=== PATIENT | male | born 1960 | race Caucasian/White ===

== ENCOUNTER → 2025-04-25 06:56 | Outpatient (CLI) | payer MEDICARE, OTHER, SELFPAY ==
--- NOTE | 2025-04-25 06:59 | DI.ECHO.S_ITS ---
[facility] : : [address] : : [place] : : [id number] : : Phone: [phone] Echocardiogram Report + + :Name: AUGIE TUCKER Study Date: 04/25/2025 Height: 70 in : :Hospital ReadingLocation: Weight: 248 lb : : Gender: Male BSA: 2.3 m2 : :: 1960 Age: 64 yrs BP: 165/100 mmHg: :Reason For Study: ATRIAL FIBRILLATION : :Ordering Physician: HARIKA, : :CLAUDIA ELDRIDGE Performed By: Debi Estrella : :Referring: CLAUDIA SHABAZZ : + + Interpretation Summary - The left ventricular contractility is normal. Estimated ejection fraction is greater than 55% with no segmental wall motion abnormalities. Mild asymmetrical septal hypertrophy without obstruction. Unable to comment on diastolic function. - The right ventricular contractility is normal. - Left atrial enlargement. Mild right ventricular enlargement. The right atrium and right ventricle are of normal size - Mild mitral regurgitation. - Aortic valvular sclerosis without significant stenosis nor insufficiency. - No obvious intracardiac shunts. - No obvious intracardiac masses nor thrombi. - No hemodynamically significant pericardial effusion. - Low right-sided filling pressures. Conclusion: Normal biventricular systolic function with mild mitral regurgitation. Procedure: A two-dimensional transthoracic echocardiogram with color flow and Doppler was performed. The study quality was technically adequate. There is no prior echocardiogram noted for this patient. The patient was in atrial fibrillation with heart rates between 51-74 bpm during the exam. Left Ventricle: The left ventricle is normal in size and wall thickness. The ejection fraction is estimated to be 55-60%. Diastolic function could not be accurately assessed due to atrial fibrillation. Right Ventricle: The right ventricle is mildly dilated. The right ventricular systolic function is normal. Atria: The left atrium is severely dilated. Right atrial size is normal. There is no Doppler evidence for an interatrial shunt. Mitral Valve: The mitral valve leaflets appear borderline thickened. There is mild mitral regurgitation. There are multiple regurgitant jets present. Aortic Valve: The aortic valve is trileaflet. There is mild aortic valve sclerosis. The aortic valve is slightly calcified. There is no aortic valve stenosis. No aortic regurgitation is present. Tricuspid Valve: The tricuspid valve is not well visualized, but is grossly normal. There is mild tricuspid regurgitation. The right ventricular systolic pressure is estimated to be at least 26 mmHg based on an estimated right atrial pressure of 3 mm Hg. Pulmonic Valve: The pulmonic valve leaflets are thin and pliable; valve motion is normal. There is no pulmonic valvular regurgitation. Great Vessels: The aortic root is normal size. The dimensions of the ascending aorta are normal. The IVC is of normal diameter and collapses greater than 50% with a sniff. This suggests a low right atrial pressure of 3 mm Hg. Pericardium/ Pleura There has been no significant change since the previous study. There is no pleural effusion. MMode/2D Measurements & Calculations LVIDd: 5.0 cm LVOT diam: 2.2 cm LVIDs: 3.0 cm Ao root diam: 3.5 cm FS: 39.6 % asc Aorta Diam: 3.6 cm IVSd: 1.2 cm Ao Arch Diam (Prox Trans): 3.6 cm LVPWd: 0.82 cm LV ji. diameter/BSA (cm/m^2): 2.2 LV sys. diameter/BSA (cm/m^2): 1.3 LA A2 area: 28.1 cm2 RA long axis: 5.7 cm LA A4 area: 28.0 cm2 RA area: 22.5 cm2 LA length (vol): 6.2 cm RA vol: 75.6 ml LA vol: 108.0 ml RA : 33.1 ml/m2 LA vol index: 47.2 ml/m2 IVC diam: 1.4 cm RVD1 (basal): 6.0 cm RVD2 (mid): 3.0 cm TAPSE: 1.9 cm Doppler Measurements & Calculations Ao V2 max: 152.4 cm/sec LVOT Max Avel: 92.8 cm/sec Ao V2 mean: 108.1 cm/sec LV V1 max P.4 mmHg Ao max P.4 mmHg LV V1 VTI: 21.1 cm Ao mean P.1 mmHg XAVIER(I,D): 2.3 cm2 Ao V2 VTI: 32.9 cm XAVIER(V,D): 2.2 cm2 sev ratio: 0.64 AXVIER indexed to BSA (cm^2/m^2): 1.0 MV E max avel: 102.7 cm/sec TR max avel: 238.8 cm/sec Med Peak E' Avel: 9.2 cm/sec TR max P.8 mmHg E/E' med: 11.1 PA V2 max: 85.4 cm/sec Lat Peak E' Avel: 10.8 cm/sec PA V2 mean: 56.9 cm/sec E/E' lat: 9.5 PA mean P.5 mmHg E/e' average: 10.3 PA pr(Accel): 32.8 mmHg MV dec time: 0.20 sec SV(LVOT): 77.4 ml Reading Physician:VIRGIE
== END ==
LOC: ECHO 06:59
PROVIDERS: Referring Provider Family Medicine; Visit Provider Family Medicine
DX: I08.3 Combined rheumatic disorders of mitral, aortic and tricuspid valves (principal); I48.91 Unspecified atrial fibrillation
CPT/HCPCS: 93306